=== PATIENT | male | born 2000 | race Caucasian/White ===

== ENCOUNTER 2023-09-29 09:12 | Outpatient (AMB) | payer OTHER, SELFPAY ==
--- NOTE | 2023-09-29 10:09 | MHC.OFFWIV ---
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 Patient Tobacco Use Status: Never used Tobacco Allergies No Known Allergies Allergy (Unverified 09/29/23 10:10) Do you need a note to return to daycare/school/sports/work: Yes HPI BREAD AND PASTRY BAKER, sore throat, cough ([phone]) HPI Details This is a 23-year-old male patient who presents today with a 1 month history of upper respiratory symptoms. He states that symptoms started with a sore throat, which persisted for about 1 week. This resolved, however he has had persistent productive cough, nasal congestion, and sinus pressure for the following 3 weeks. States he has taken multiple lxor-jnl-iksvbid cold /flu medications without much relief. Denies any shortness of breath or respiratory symptoms. Denies any GI symptoms. Denies known exposure to sick contacts. [facility] Social History Patient Tobacco Use Status: Never used Tobacco Review of Systems Const All systems reviewed & are unremarkable except as noted in HPI and below Physical Exam Vital Signs: Last Vital Signs Temp 97.4 F 09/29/23 10:15 Pulse 66 09/29/23 10:15 BP 116/40 L 09/29/23 10:15 Pulse Ox 97 09/29/23 10:15 Oxygen Delivery Method Room Air 09/29/23 10:15 BMI result Body Mass Index 16.2 Const General: cooperative and no acute distress HEENT Head: Yes normal to inspection Ears: hearing grossly normal bilaterally General nose exam: Normal external nose present and Nasal discharge present mucoid Face and sinus: Yes sinus tenderness (maxillary) Throat: Yes posterior oropharynx abnormal ( Mild erythema) Resp Effort & Inspection: normal respiratory effort, able to speak in complete sentences and Actively coughing Quality: productive Auscultation: clear to auscultation bilaterally Cardio Palpation: normal PMI Rate: regular rate Rhythm: regular rhythm Skin General skin exam: no rashes or lesions noted Extrem General: Yes capillary refill normal and Yes no clubbing, cyanosis or edema Psych Appearance: grossly normal Mental Status: mental status grossly normal Speech and movement: Normal speech and movement present Results AMB Rapid Strep AMB Rapid Strep Negative Last Edit by Michelle Del Rio CMA on 09/29/23 10:49 Assessment & Plan Assessment & Plan (1) Upper respiratory infection: Code(s): J06.9 - Acute upper respiratory infection, unspecified Qualifiers: URI type: unspecified URI Qualified Code(s): J06.9 - Acute upper respiratory infection, unspecified Plan: Will start an antibiotics. We reviewed indications, use, possible side effects of these. Advised to continue with increased hydration, proper diet, Tylenol prn. If he does not improve with treatment, he can return to the clinic for further evaluation. He verbalizes understanding and agrees to plan. (2) Acute sinusitis: Code(s): J01.90 - Acute sinusitis, unspecified Qualifiers: Sinusitis location: maxillary Recurrence: non-recurrent Qualified Code(s): J01.00 - Acute maxillary sinusitis, unspecified Plan: As above. Orders: Orders AMB Rapid Strep Screen Today Z13.9 - Encounter for screening, unspecified Medications: New azithromycin For 250 mg dose pack: take 500 mg today (day 1), then 250 mg for 4 days (days 2-5) PO 6 tabs 0RF J01.90 - Acute sinusitis, unspecified, J06.9 - Acute upper respiratory infection, unspecified Coding Level of Care Code Est Pt Level 3 (12224) Diagnoses Upper respiratory tract infection, unspecified type J06.9 URI type: unspecified URI Acute non-recurrent maxillary sinusitis J01.00 Sinusitis location: maxillary Recurrence: non-recurrent
[2023-09-29 10:15] VITALS: BP 116/40; PULSE 66; TEMP 36.3; O2SAT 97; BMI 16.2
== END 2023-09-29 10:53 | disposition home or self-care (01) ==
PROVIDERS: PCP Pediatrics; Visit Provider Nurse Practitioner Family
DX: J06.9 Acute upper respiratory infection, unspecified (principal); J01.00 Acute maxillary sinusitis, unspecified; J02.9 Acute pharyngitis, unspecified
CPT/HCPCS: 87880; 99213

== ENCOUNTER 2023-12-04 10:58 | Outpatient (AMB) | payer OTHER, SELFPAY ==
[2023-12-04 11:10] VITALS: BP 110/70; PULSE 68; O2SAT 98
--- NOTE | 2023-12-04 11:10 | MHC.OFFWIV ---
Intake Vital Signs 12/04/23 11:10 Weight 111 lb BP 110/70 Blood Pressure Location Rt brachial Position Sitting Pulse 68 Pulse Source Pulse Oximeter Pulse Oximetry (%) 98 Oxygen Delivery Method Room Air Intake Visit Reasons: EP Cough, Congestion Intake Note: Patient here for cough and congestion that started at the beginning of this year and was put on antibiotics which seemed to be helping but once it was finished all symptoms came back. Patient Tobacco Use Status: Former Tobacco user Allergies No Known Allergies Allergy (Unverified 12/04/23 11:12) Do you need a note to return to daycare/school/sports/work: No HPI HPI Comments History of Present Illness Details This is a 23-year-old male who presented to the walk-in clinic today complaining of persistent/worsening dry cough and nasal/sinus congestion. Patient states his symptoms originally started in August of 2023. He was seen at the walk-in clinic on 09/29/2023 and he was given a prescription for a Z-Rodrigo, which she completed on 10/04/2023. He states that his symptoms mildly improved but then began to worsen once he was done with the azithromycin. Denies any fevers or chills. He denies any sputum production. He denies any chest pain. He denies any shortness a breath. He denies any abdominal pain or nausea/vomiting/diarrhea. He is otherwise feeling well. [facility] Social History Patient Tobacco Use Status: Former Tobacco user Review of Systems Const All systems reviewed & are unremarkable except as noted in HPI and below Reports no additional complaints Eyes Reports no additional complaints ENT Reports no additional complaints Card Reports no additional complaints Resp Reports no additional complaints GI Reports no additional complaints Reports no additional complaints Musc Reports no additional complaints Skin/Breast Reports system reviewed and no additional complaints, except as documented Neuro Reports no additional complaints Psych Reports no additional complaints Endo Reports no additional complaints Seven/Lymph Reports no additional complaints Aller/Immun Reports no additional complaints Physical Exam Vital Signs: Last Vital Signs Pulse 68 12/04/23 11:10 BP 110/70 12/04/23 11:10 Pulse Ox 98 12/04/23 11:10 Oxygen Delivery Method Room Air 12/04/23 11:10 Const Other: Vital signs reviewed. Constitutional: Non-toxic appearing. No acute distress. Well-developed and well-nourished. HEENT: Normocephalic and atraumatic. Tympanic membranes without erythema, edema, or bulging bilaterally. Skin: Warm and dry. No rashes or lesions noted. Neck: Full and painless range of motion. No cervical lymphadenopathy. Cardio: Regular rate and rhythm. No murmurs, gallops, or rubs. No lower extremity edema. No JVD. Pulmonary: No respiratory distress. No accessory muscle usage. Clear to auscultation bilaterally without wheezing, crackles, or rhonchi. Gastrointestinal: Soft, nontender, and nondistended in all 4 quadrants. Musculoskeletal: Normal range of motion in joints throughout the body. No deformity or other signs of injury. Neuro: Alert and oriented x4. Cranial nerves 2-12 grossly intact. No focal deficits appreciated. Psych: Normal mood and affect. Assessment & Plan Assessment & Plan (1) Chronic cough: Code(s): R05.3 - Chronic cough Plan: This is a 23-year-old male who presents to the office complaining of a persistent dry cough with nasal/sinus congestion x3 months. Patient states his symptoms initially improved with a Z-Rodrigo; however, they returned and they have worsened over the past 2 months. History physical appear to be most consistent with a post viral cough/syndrome, which was explained in detail. Patient was given a prescription for PO amoxicillin/clavulunate 875/125mg twice daily x 7 days given worsening symptoms though I explained to the patient risks of unnecessary antibiotic use. He was also given a prescription for p.o. benzonatate 100 mg 3 times daily as needed for cough and fluticasone nasal spray. Patient was also instructed to start utilizing an antihistamine daily to see if these help with his symptoms. Patient verbalizes understanding and he is in agreement with the plan. Medications: New benzonatate 100 mg PO TID PRN 14 caps 0RF cough amoxicillin-pot clavulanate 875-125 mg 1 tab PO BID 14 tabs 0RF fluticasone propionate 50 mcg/actuation (Allergy Relief (fluticasone)) administer into each nostril 1 spray intranasal Q12H 16 grams 0RF Coding Level of Care Code Est Pt Level 3 (40324) Diagnoses Chronic cough R05.3
== END 2023-12-04 14:22 | disposition home or self-care (01) ==
PROVIDERS: PCP Pediatrics; Visit Provider Physician Assistant Medical
DX: R05.3 Chronic cough (principal)
CPT/HCPCS: 99213

== ENCOUNTER 2024-02-03 08:33 | Outpatient (AMB) | payer OTHER, SELFPAY ==
[2024-02-03 08:38] VITALS: BP 112/68; PULSE 72; TEMP 36.6; O2SAT 99; BMI 16.1
--- NOTE | 2024-02-03 08:38 | MHC.OFFWIV ---
Intake Vital Signs 02/03/24 08:38 Height 5 ft 9 in Weight 109 lb BMI 16.1 BP 112/68 Blood Pressure Location Rt brachial Position Sitting Pulse 72 Pulse Source Pulse Oximeter Temp 97.9 F Temp Source Oral Pulse Oximetry (%) 99 Intake Visit Reasons: EP Rash Under Both Arms Intake Note: pt is here for rash under both arms Patient Tobacco Use Status: Former Tobacco user Allergies No Known Allergies Allergy (Verified 02/03/24 08:39) Do you need a note to return to daycare/school/sports/work: Yes HPI HPI Comments History of Present Illness Details Pt is a 23yo M who presents to office with rash It is itchy and painful Worse R side No discharge Ongoing over 1 week No worsening or improving factors Tried lotion without relief Tried to cut hair in axila to see rash No new meds, lotions, detergents, pools, work environment/irritant that he can recall No rash elsewhere No pain scale given PFSH Social History Patient Tobacco Use Status: Former Tobacco user Review of Systems Const Denies fever(s) Resp Denies cough Musc Denies myalgias Skin/Breast Reports erythema and Reports rash Physical Exam Vital Signs: Last Vital Signs Temp 97.9 F 02/03/24 08:38 Pulse 72 02/03/24 08:38 BP 112/68 02/03/24 08:38 Pulse Ox 99 02/03/24 08:38 BMI result Body Mass Index 16.1 General: Non-toxic, NAD. Speaking full sentences. Skin: Warm dry throughout. R axilla has erythematous raised pustules and papules over hair follicles. Large erythematous patch in middle of axilla. L axilla has less erythematous papules without a patch present. + excoriations. No discharge. Eye: EOMI Respiratory: No respiratory distress MSK: Full ROM extremities. Neurology: A/O. No aphasia or facial droop. Gait without abnormality Psych: Good mood and affect Assessment & Plan Assessment & Plan (1) Folliculitis: Code(s): L73.9 - Follicular disorder, unspecified Plan: + folliculitis axilla bilaterally Discussed avoiding itching Can use OTC benadryl cream for itch; avoid steroid for skin break down Keflex with food Soap and water daily and dab dry Call with concerns Patient gave verbal understanding and had no additional questions or concerns at time of discharge All questions answered Medications: New cephalexin take with food 500 mg PO TID 7 days 21 caps 0RF Coding Level of Care Code Est Pt Level 3 (99329) Diagnoses Folliculitis L73.9
== END 2024-02-03 08:59 | disposition home or self-care (01) ==
PROVIDERS: PCP Pediatrics; Visit Provider Physician Assistant
DX: L73.9 Follicular disorder, unspecified (principal)
CPT/HCPCS: 99213